=== PATIENT | female | born 1940 | race Caucasian/White ===

== ENCOUNTER 2016-07-28 03:44 | Observation (INO) | payer MEDICARE, OTHER ==
[2016-07-28] VITALS (12 sets, daily range): BP systolic 142–190; BP diastolic 79–103; PULSE 58–106; RESP 16–20; O2SAT 94–98
[~2016-07-28] VITALS: Ht 165.1 cm; Wt 89.6 kg
[~2016-07-28 03:44] MED LIST: ADV250INH INH; AMLO-39 PO; ASPI81TA40 PO; HYDR1TAB69 PO; LEVO50TA83 PO; OMEP40CA25 PO; TEN50 PO
--- NOTE | 2016-07-28 03:49 | ED.REPORT ---
HPI-Chest Pain 40 and Over Date of Service Jul 28, 2016 ED Provider: Scar Garcia MD This is a 75 year old female with a history of NC, s/p cardiac stents x2 presenting to the emergency department via EMS complaining of sudden onset chest pain that began 1 hour ago and is now resolved. Chest pain woke her from sleep with radiation to the left arm, 8/10, associated with nausea, shortness of breath, and diaphoresis. Pt took one nitro that was prescribed at time of NC which provided mild pain relief. En route, 1 nitro, 325 mg ASA administered, provided complete chest pain relief. In the ED, pt denies chest pain, nausea, SOB, or diaphoresis. Pt states symptoms are similar to those she experienced with previous NC. Nursing Notes Stated Complaint: CHEST PAIN Chief Complaint: Chest Pain Nursing Notes Reviewed: Yes Allergies: Coded Allergies: No Known Allergies (Unverified , 07/28/16) Scheduled AmLODIPine-Expunged Drug, Do Not Renew! (AmLODIPine-Expunged Drug, Do Not Renew! ) 5 Mg Tablet 2.5 MG PO DAILY HOLD FOR SBP<[] OR HR<[] Aspirin-Expunged Drug, Do Not Renew! (Aspirin-Expunged Drug, Do Not Renew!) 81 Mg Tab.chew 81 MG PO DAILY INSTRUCTED TO STOP Atenolol-Expunged Drug, Do Not Renew! (Atenolol-Expunged Drug, Do Not Renew!) 50 Mg Tablet 50 MG PO DAILY Hydrocod/APAP-Expunged, Do Not Renew! (VICODIN-Expunged Drug, Do Not Renew) 1 Tab Tab 5-325 TAB PO HS Levothyroxine-Expunged Drug, Do Not Renew! (Synthroid-Expunged Drug, Do Not Renew!) 50 Mcg Tablet 50 MCG PO DAILY Omeprazole-Expunged Drug, Do Not Renew! (Omeprazole-Expunged Drug, Do Not Renew! ) 40 Mg Capsule.dr 40 MG PO DAILY Scheduled PRN Flutic/Salmet-Expunged Drug, Do Not Renew! (Advair 500/50-Expunged Drug, Do Not Renew!) 60 Puff Disk 1 PUFF INH BID PRN PRN SYMBICORT 160-4.5 2 PUFFS BID General Time Seen by MD: 03:45 Chief Complaint Chest pain Hx Obtained From: Patient Arrived By: Ambulance Sudden in Onset?: Yes Onset Occurred: 1 - 4 hours ago Symptom Duration: Since onset Location: : Chest left Severity: Current: No pain currently Severity: Maximum: Moderate Pertinent Negative: Pt denies other symptoms Recent Healthcare: No recent doctor visit, No recent hospitalization Similar Sx Previous: No Past Medical History Past Medical History NC Past Surgical History Cardiac stents x2 Ambulatory Status Independent Review of Systems Constitutional: Denies: Chills, Fever Respiratory: Reports: Shortness of breath, Denies: Non-productive cough Cardiovascular: Reports: Chest pain GI: Reports: Nausea, Denies: Abdominal pain, Vomiting Musculoskeletal: Denies: Back pain Skin: Reports Diaphoresis Complete sys rev & neg: except as marked. Female: Denies: Dysuria Physical Exam Initial Vital Signs Vital Signs (First) Date Time Temp Pulse Resp B/P Pulse Ox O2 Delivery O2 Flow Rate FiO2 07/28/16 03:52 36.7 68 18 172/81 98 Room Air --=- Initial VS: Reviewed Head / Eyes: Atraumatic, Normocephalic, PERRL ENT: Mucous membranes moist, Conjunctiva normal, No scleral icterus Neck: Supple, Non-tender, Full range of motion Extremities: Vascular intact, Neuro intact, No swelling, No tenderness Skin: Warm, Dry, No cyanosis Neurologic: Alert, Oriented, Nonfocal Psychiatric: Mood/affect normal, Behavior normal, Normal thought content General/Constitutional: Awake, Alert Respiratory / Chest: Breath sounds NL, Breath sounds = bilat, No respiratory distress, No rales, No rhonchi, No wheezing, No stridor, No chest tenderness Cardiovascular: No murmurs Abdomen: Soft, Non-tender, McBurney's non-tender, No guarding, No rebound, BS normoactive, No distention, No hernia, No palpable mass Interpretation & Diagnostics Lab Results Interpretation Result Diagram: 07/28/16 0345 07/28/16 0345 Test 07/28/16 03:00 07/28/16 03:45 Prothrombin Time 20.6sec (8.1-12.5) Prothromb Time International Ratio 1.90ratio Activated Partial Thromboplast Time 36.8sec (22.8-33.0) Pro-B-Type Natriuretic Peptide 252.8pg/mL (0-301) White Blood Count 6.4th/mm3 (3.8-10.1) Red Blood Count 4.78mil/mm3 (3.90-5.20) Hemoglobin 13.4g/dL (12.0-15.6) Hematocrit 40.2% (35.0-46.0) Mean Corpuscular Volume 84.1fL (81-100) Mean Corpuscular Hemoglobin 28.0pg (27.0-35.0) Mean Corpuscular Hemoglobin Concent 33.3% (32.0-37.0) Red Cell Distribution Width 15.1% (12.3-15.4) Platelet Count 228bil/L (150-400) Neutrophils (%) (Auto) 40.5% (40-74) Lymphocytes (%) (Auto) 45.9% (14-46) Monocytes (%) (Auto) 9.1% (4-12) Eosinophils (%) (Auto) 3.5% (0-5) Basophils (%) (Auto) 0.8% (0-3) Sodium Level 137mEq/L (134-144) Potassium Level 3.1mEq/L (3.5-5.2) Chloride Level 97mEq/L (97-108) Carbon Dioxide Level 24mmol/L (18-29) Blood Urea Nitrogen 11mg/dL (8-27) Creatinine 0.88mg/dL (0.57-1.00) Estimat Glomerular Filtration Rate 90mL/min (>59) Glucose Level 116mg/dL (60-99) Calcium Level 8.7mg/dL (8.5-10.1) Magnesium Level 1.7mg/dL (1.6-2.6) Total Bilirubin 0.6mg/dL (0.0-1.2) Aspartate Amino Transf (AST/SGOT) 16U/L (0-50) Alanine Aminotransferase (ALT/SGPT) 7U/L (0-32) Alkaline Phosphatase 58U/L (25-165) Troponin T 0.010ug/L (0.0-0.011) Total Protein 7.0g/dL (6.4-8.4) Albumin 4.0g/dL (3.4-5.0) X-Ray Chest Interpretation Interpretation / Wet Read by: Wet read ED physician NL X-Ray Chest Findings: No infiltrate, No acute disease Re-Eval/Medical Decision Med Decision/Clinical Course 75-year-old with prior NC and stenting 2, presents to years later after angina free., With identical symptoms to her NC awakening her from sleep. Her story is quite concerning for unstable angina. She is initially negative by enzymes, with some minor changes in her T waves of her lateral leads in the field compared to here after becoming pain-free. Admitted to the medicine service for completion rule out protocol and dynamic testing to exclude progressive occlusion of her grafts or other progression of her disease. Begun on heparin. Time of Eval: 04:59 Re-Evaluation/Progress Note: plan for admission, all questions addressed. 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 (PCP) Scribe Attestation Portions of this note were transcribed by Ariana Anna. I, Dr. Garcia personally performed the history, physical exam and medical decision-making; I reviewed and confirmed the accuracy of the information in the transcribed note. Signed by: brendon Pham. 07/27/2016, 06:00. Scar Garcia MD Jul 28, 2016 03:49 ARIANA ANNA Jul 28, 2016 03:56
[2016-07-28 03:53] LABS: BASOPHILS % (AUTO) 0.8 % (0-3); EOSINOPHILS % (AUTO) 3.5 % (0-5); MONOCYTES % (AUTO) 9.1 % (4-12); Mean Corpuscular Volume 84.1 fL (81-100); NEUTROPHILS % (AUTO) 40.5 % (40-74); Platelet Count 228 bil/L (150-400)
[2016-07-28] MEDS ORDERED: LORazepam 0.5 mg Tablet PO PRN (03:55)
[2016-07-28] MEDS ORDERED: Nitroglycerin 2% 1 Gm Ointment TOPICAL ONE (03:55)
[2016-07-28 04:19] LABS: TROPONIN T 0.01 ug/L (0.0-0.011)
[2016-07-28 04:30] LABS: Magnesium 1.7 mg/dL (1.6-2.6)
[2016-07-28] MEDS ORDERED: Heparin 25K Unit/500mL 0.45 NS 25,000 UNIT in IV Premix 1 EACH IV ONE (05:10)
[2016-07-28] MEDS ORDERED: Heparin 5,000 Unit/mL Inj IVPUSH ONE (05:10)
[2016-07-28] MEDS ORDERED: Ondansetron 2 mg/mL 2 mL Inj IVPUSH PRN ×2 (05:15→05:50)
[2016-07-28] MEDS ORDERED: Heparin 25K Unit/500mL 0.45 NS 25,000 UNIT in IV Premix 1 EACH IV SCH ×2 (05:15→05:50)
[2016-07-28] MEDS ORDERED: Alum-Mag Hydrox-Simeth 30 mL Suspension PO PRN ×2 (05:15→05:50)
[2016-07-28 05:20] LABS: INR 1.9 ratio
[2016-07-28] MEDS ORDERED: Heparin 5,000 Unit/mL Inj IVPUSH PRN (05:50)
[2016-07-28] MEDS ORDERED: Atropine 1 mg/10 mL (Code) Syringe IVPUSH PRN (05:50)
[2016-07-28] MEDS ORDERED: Polyethylene Glycol (PEG) 17 Gm Powder PO PRN (05:50)
[2016-07-28] MEDS ORDERED: Senna-Docusate 8.6-50 mg Tablet PO PRN (05:50)
--- NOTE | 2016-07-28 06:16 | PCM.HPMED ---
Subjective Date of Service Jul 28, 2016 Primary Provider: Admitting Physician: Karyn Pena MD Primary Care Physician: Naldo Vizcaino MD Attending Physician: Karyn Pena MD Admit Status: From the Emergency Department, 23-Hour Observation, [facility] Telemetry Chief Complaint: Chest pain History of Present Illness: This 75-year-old female who has a history of CO status post cardiac stents 2 which occurred approximately 2 years ago. This is per patient report. She had been doing fine up until overnight. She woke up early this morning with left- sided chest pressure she noted it radiated to her shoulder and then down her arm. She had shortness of breath along with cold sweat and nausea. She took a sublingual nitroglycerin at home and did call 911. She notes all in all the chest pressure lasted for approximately 45 minutes. She notes it was similar to when she had her CO 2 years ago. Her evaluation in the emergency room includes a troponin which was 0.010. Her initial EKG revealed sinus at a rate of 69. She did have poor R-wave progression across precordium. Repeat EKG did not show any changes from initial one. Except for initial and having possibly some flattening of the T wave in lead 3. Review of records from [facility] previously revealed a left heart catheterization which was done March 2010. At that time revealed an ejection fraction of 55-60% with mild apical hypokinesis. There were no significant coronary artery blockages except for left anterior descending artery having mild luminal irregularities along with the left circumflex and right coronary artery having luminal irregularities. Review of Systems: Patient denies any fevers chills. 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 Family History Mother and father with a history of coronary artery disease Social History Hx Alcohol Use: Yes Hx Substance Use: No Hx Tobacco Use: Yes Living Arrangement: with Family Exam Vital Signs Vital Sign - Last Date Time Temp Pulse Resp B/P Pulse Ox O2 Delivery O2 Flow Rate FiO2 07/28/16 05:48 36.7 62 174/103 96 Room Air 07/28/16 05:18 18 Exam Constitutional: Elderly woman in no acute distress Head: Normocephalic atraumatic Eyes: PERRLA GC EOMI Mouth: No lesions Neck: Carotids 2+ over 4 without bruits bilaterally Chest: Clear to auscultation Cor: Regular rate and rhythm S1-S2 without murmur Abdomen: Soft nontender bowel sounds present Extremities: No pedal edema Skin: No rashes Psych: Mood and affect are appropriate Neuro: Alert and oriented 3, motor strength is intact bilaterally Lab and Diagnostics Labs Laboratory Tests 72 Hours Test 07/28/16 03:00 07/28/16 03:45 Prothrombin Time 20.6sec (8.1-12.5) Prothromb Time International Ratio 1.90ratio Activated Partial Thromboplast Time 36.8sec (22.8-33.0) Pro-B-Type Natriuretic Peptide 252.8pg/mL (0-301) White Blood Count 6.4th/mm3 (3.8-10.1) Red Blood Count 4.78mil/mm3 (3.90-5.20) Hemoglobin 13.4g/dL (12.0-15.6) Hematocrit 40.2% (35.0-46.0) Mean Corpuscular Volume 84.1fL (81-100) Mean Corpuscular Hemoglobin 28.0pg (27.0-35.0) Mean Corpuscular Hemoglobin Concent 33.3% (32.0-37.0) Red Cell Distribution Width 15.1% (12.3-15.4) Platelet Count 228bil/L (150-400) Neutrophils (%) (Auto) 40.5% (40-74) Lymphocytes (%) (Auto) 45.9% (14-46) Monocytes (%) (Auto) 9.1% (4-12) Eosinophils (%) (Auto) 3.5% (0-5) Basophils (%) (Auto) 0.8% (0-3) Sodium Level 137mEq/L (134-144) Potassium Level 3.1mEq/L (3.5-5.2) Chloride Level 97mEq/L (97-108) Carbon Dioxide Level 24mmol/L (18-29) Blood Urea Nitrogen 11mg/dL (8-27) Creatinine 0.88mg/dL (0.57-1.00) Estimat Glomerular Filtration Rate 90mL/min (>59) Glucose Level 116mg/dL (60-99) Calcium Level 8.7mg/dL (8.5-10.1) Magnesium Level 1.7mg/dL (1.6-2.6) Total Bilirubin 0.6mg/dL (0.0-1.2) Aspartate Amino Transf (AST/SGOT) 16U/L (0-50) Alanine Aminotransferase (ALT/SGPT) 7U/L (0-32) Alkaline Phosphatase 58U/L (25-165) Troponin T 0.010ug/L (0.0-0.011) Total Protein 7.0g/dL (6.4-8.4) Albumin 4.0g/dL (3.4-5.0) Result Diagram: 07/28/16 0345 07/28/16 034 12-lead ECG As above in history of present illness Assessment & Plan # Chest pain, acute, present on admission Patient was started on IV heparin drip in the emergency room and will continue Check serial troponins Check echocardiogram Obtain nuclear stress pharmacological test # DVT prophylaxis Currently she is on IV heparin drip # CODE STATUS Full code Resuscitation Status: CPR: Attempt Resuscitation Time spent 60 minutes Karyn Pena MD Jul 28, 2016 06:16
--- NOTE | 2016-07-28 06:30 | NUR ---
MED REC NOT COMPLETED Pt does not have list of current medications with her, and unable to recall medications off of memory. Pts will bring in list.
[2016-07-28] MEDS: 0.9% Sodium Chloride 1,000 ML IV SCH ×3 (06:36→22:15)
--- NOTE | 2016-07-28 07:02 | NUR ---
PREP FOR CARDIAC STRESS TEST Nitro paste removed from pts chest at 0645 on 07/28/16. Pt states last drink of caffeine was 1500 on 07/27/16. Last meal was 1600 on 07/27/16. Pt needs 2nd troponin drawn prior to test being performed. Lab called, will be arriving to draw 2nd troponin.
--- NOTE | 2016-07-28 07:09 | NUR ---
ADMIT NOTE Pt arrived to [facility] approx 0535. Pt alert and oriented. Pt slightly unsteady on feet d/t R hip replacement and arthritis. Pt placed on remote telemetry. Pt arrived from ER w/ heparin gtt infusing, cardiac protocol, at 1000 units/hr (20ml/hr). IVF administered. Pt denies pain at this time. Pt made aware of NPO status, cardiac stress test and ECHO. Continue to monitor. Call light in reach. Bed alarm on. Intentional rounding.
--- NOTE | 2016-07-28 08:11 | NUR ---
pt is NPO, all oral medications are being held this am.
[2016-07-28] MEDS: Sodium Chloride LOK Flush 10 mL Syringe IVFLUSH SCH ×2 (08:30→16:30)
--- NOTE | 2016-07-28 08:40 | DRSVH ---
PROCEDURE: X-RAY CHEST ONE VIEW, PORTABLE ([id number]) INDICATIONS: cp TECHNIQUE: One view of the chest was acquired. COMPARISON: [facility], , CHEST 1VW (PORTABLE), 01/27/2007, 16:43. FINDINGS: Surgical changes and devices: None. Lungs and pleura: No pleural effusions or pneumothorax. Lungs are clear and mildly hyperinflated si milar to prior exam. Mediastinum: Mediastinal contours appear normal. Heart size is normal. Bones and chest wall: No suspicious bony lesions. Overlying soft tissues appear unremarkable. IMPRESSION: No acute cardiopulmonary disease. Dictated by: Aleksandr Jeong RR Interpreted: Hayden Mason MD on 07/28/2016 at 8:39 Transcribed by: GISELLE on 07/28/2016 at 8:40 Approved by: Hayden Mason M.D. on 07/28/2016 at 9:03
[2016-07-28 09:33] LABS: APPEARANCE,URINE CLEAR (CLEAR,HAZY); COLOR,URINE YELLOW (YELLOW); OCCULT BLOOD,URINE TRACE (NEGATIVE); PH,URINE 7.5 (5.0-8.0); UROBILINOGEN,URINE NORMAL (NORMAL)
--- NOTE | 2016-07-28 14:25 | NUR ---
off floor pt is transported via W/C by transporter. pt is having a stress test.
--- NOTE | 2016-07-28 14:27 | NUR ---
Heparin turned off for procedure. Heparin running at 20mL/hr when pt left floor.
--- NOTE | 2016-07-28 14:47 | NUR ---
Social Work: Initial Assessment / Readiness for d/c Data: Pt is a 75 y/o female admitted for unstable angina. Pt's PCP is Dr Vizcaino, pt's insurance is [employer]. Readmit score not listed. EMR reviewed. Pt discussed in rounds, MD states pt likely to d/c either today or tomorrow. HEAD OF RESEARCH & INSIGHTS met with pt at bedside, role explained. Pt states that she lives in a single story home with her spouse where she uses no DME. Pt states that she drives, has history of HH, history with [facility] for SNF, no LTC or VA benefits, and is not a caregiver. Pt states she has been up independent in her room. Contact info and plan written on board. No d/c planning needs anticipated at this time. HEAD OF RESEARCH & INSIGHTS will continue to follow if needs arise. Assessment: Pt who is independent at baseline. Plan: Pt will d/c home via POV with spouse when medically stable. No d/c planning needs anticipated at this time. HEAD OF RESEARCH & INSIGHTS will continue to follow if needs arise. ANDREW Johnson Addendum: 07/28/16 at 1450 by BERT ALEXANDER Amended: Links added.
--- NOTE | 2016-07-28 16:02 | NUR ---
bloody tissues son states that he was at the pt's home to grab medications. He noticed bloody tissues and what looked like was spit up or coughed up blood on the tissues. He just wanted us to be aware of this.
[2016-07-28] MEDS ORDERED: LIP40 PO (17:34)
[2016-07-28] MEDS ORDERED: HYDR12.55 PO (17:35)
[2016-07-28] MEDS ORDERED: WARF2.5T82 PO (17:36)
[2016-07-28] MEDS ORDERED: WARF5TAB7 PO (17:36)
--- NOTE | 2016-07-28 17:37 | DRSVH ---
PROCEDURE: 1 DAY PHARMACOLOGICAL STRESS TEST Rest and pharmacological stress myocardial perfusion SPECT with gated imaging and ejection fraction RADIOPHARMACEUTICAL: 9.71 mCi Tc-99m tetrafosmin IV at rest and 31.9 mCi Tc-99m tetrafosmin IV at pe ak effect of pharmacological stress. A [id number] was performed. INDICATIONS: chest pain. TECHNIQUE: Radiopharmaceutical was injected at peak stress test, and also at rest. SPECT images wer e obtained. SPECT myocardial perfusion images were displayed in short axis, horizontal long axis, an d vertical long axis views. Gated images were reviewed using [employer] software. COMPARISON: [facility], [facility] PERF SPECT MULTI ([facility]), 03/09/2007, 8:36. CARDIAC STRESS: A pharmacologic stress test was performed under the supervision of an attending staff, using an infus ion of lexiscan 0.4mg IVX1. Hemodynamic data: There is normal blood pressure and heart rate response to pharmacologic stress. Symptoms: The patient denied anginal chest pain. Aminophylline: 100mg IV X1 EKG: No diagnostic changes of ischemia; no ectopy. FINDINGS: Raw data: There is good myocardial uptake of radiotracer. No significant motion artifacts. Left ventricle function: Gated images demonstrate normal left ventricular wall thickening. No segme ntal wall motion abnormalities. No transient ischemic dilation. Left ventricle resting end diastoli c volume is 73 mL. Left ventricle stress ejection fraction is 79%; normal range is above 45%. Myocardial perfusion: Very mild fixed defect in the apex, consistent with apical thinning. No signi ficant ischemia but small prior infarction can not be completely excluded. Prone images were not obt ained. IMPRESSION: Probably normal perfusion study 1) Probably normal perfusion study. Very mild fixed defect in the apex, consistent with apical thinn ing. No significant ischemia but small prior subendocardial infarction can not be completely exclude d. Prone images were not obtained. 2) Normal left ventricular size, wall motion, and systolic function (EF 79%). 3) No ECG evidence of ischemia with lexiscan. 4) No angina or angina equivalent symptoms with lexiscan. 5) Compared to the nuclear stress test report on 03/09/2007, the previously seen inferior and anterior defects are no longer present but the apical defect present on today's study is new. Dictated by: Onesimo Bonilla M.D. on 07/28/2016 at 17:19 Approved by: Onesimo Bonilla M.D. on 07/28/2016 at 17:36
[2016-07-28] MEDS ORDERED: OMEP20CA11 PO (20:20)
[2016-07-28] MEDS ORDERED: LEVO50TA6 PO (20:20)
[2016-07-28] MEDS ORDERED: ATEN50TA PO (20:20)
--- NOTE | 2016-07-29 00:15 | NUR ---
Heparin gtt Heparin stopped prior to shift change for elevated PTT of 132.6 for unknown length of time. At shift shift change the RN indicated this value cannot be right since the draw was taken right after resuming the gtt after the patient returned to the floor. A stat PTT was placed and returned the value 35.7. Informed the nurse charge rn and started Heparin protocol over with rate of 1000u/hour and lab draws rescheduled for Q6 x4.
[2016-07-29] MEDS: Sodium Chloride LOK Flush 10 mL Syringe IVFLUSH SCH ×2 (00:30→08:05)
[2016-07-29 04:40] VITALS: BP 146/81; PULSE 63; RESP 18; O2SAT 95
[2016-07-29 05:34] VITALS: PULSE 60
[2016-07-29 08:00] VITALS: PULSE 66
--- NOTE | 2016-07-29 08:30 | PCM.DIMED ---
Discharge Instructions Date of Service Jul 29, 2016 Dates of Hospitalization Jul 28, 2016 at 05:21 Discharge Diagnosis Discharge Diagnosis # Chest pain, acute, present on admission - Now resolved, though there is a history of coronary artery disease, heart attack, no evidence of acute condition at this time based on stress testing and other studies. - Continue home medications, FU with PCP in 1-2 weeks for further management and tight blood pressure control. Diet Heart Healthy Activity No restrictions Call your provider Fever or Chills, Shortness of breath, Chest pain Patient Instructions Follow-up with PCP in: 1 week Enoch Isaac DO Jul 29, 2016 08:30
--- NOTE | 2016-07-29 08:36 | PCM.DC.MED ---
Discharge Summary Date of Service Jul 29, 2016 Dates of Hospitalization Date of Hospital Admission Jul 28, 2016 at 05:21 Date of Discharge: Jul 29, 2016 Providers: Admitting Physician: Karyn Pena MD Primary Care Physician: Naldo Vizcaino MD Attending Physician: Karyn Pena MD Diagnosis at Time of Discharge Diagnosis at Time of Discharge # Chest pain, acute, present on admission - Now resolved, though there is a history of coronary artery disease, heart attack, no evidence of acute condition at this time based on stress testing and other studies. - Continue home medications, FU with PCP in 1-2 weeks for further management and tight blood pressure control. Procedures ECG 12 Lead As above in history of present illness Invasive Procedures Date of Service: 07/28/16 0546 PROCEDURE: 1 DAY PHARMACOLOGICAL STRESS TEST IMPRESSION: Probably normal perfusion study 1) Probably normal perfusion study. Very mild fixed defect in the apex, consistent with apical thinning. No significant ischemia but small prior subendocardial infarction can not be completely excluded. Prone images were not obtained. 2) Normal left ventricular size, wall motion, and systolic function (EF 79%). 3) No ECG evidence of ischemia with lexiscan. 4) No angina or angina equivalent symptoms with lexiscan. 5) Compared to the nuclear stress test report on 03/09/2007, the previously seen inferior and anterior defects are no longer present but the apical defect present on today's study is new. Dictated by: Onesimo Bonilla M.D. on 07/28/2016 at 17:19 Brief History As per HPI by Dr. Pena, "This 75-year-old female who has a history of MO status post cardiac stents 2 which occurred approximately 2 years ago. This is per patient report. She had been doing fine up until overnight. She woke up early this morning with left-sided chest pressure she noted it radiated to her shoulder and then down her arm. She had shortness of breath along with cold sweat and nausea. She took a sublingual nitroglycerin at home and did call 911. She notes all in all the chest pressure lasted for approximately 45 minutes. She notes it was similar to when she had her MO 2 years ago. Her evaluation in the emergency room includes a troponin which was 0.010. Her initial EKG revealed sinus at a rate of 69. She did have poor R-wave progression across precordium. Repeat EKG did not show any changes from initial one. Except for initial and having possibly some flattening of the T wave in lead 3. Review of records from [facility] previously revealed a left heart catheterization which was done March 2010. At that time revealed an ejection fraction of 55-60% with mild apical hypokinesis. There were no significant coronary artery blockages except for left anterior descending artery having mild luminal irregularities along with the left circumflex and right coronary artery having luminal irregularities." Hospital Course # Chest pain, acute, present on admission: Patient was started on IV heparin drip in the emergency room which was continued until completion of stress testing which demonstrated no evidence of ACS. Pt's chest pain resolved by day# 1 of hospitalization. She was also monitored on telemetry, and serial troponin trended, all of which was negative. Lipid panel obtained, listed below. #Hypertension: Pt's oral BP medications were held while NPO which resulted in a significant rise, max sBP of 190, however this improved with restarting of oral medications prior to discharge, though not an optimal range. I will put primary care is indicated shortly following discharge to optimize blood pressure medications. Exam Vital Signs (Last) Date Time Temp Pulse Resp B/P Pulse Ox O2 Delivery O2 Flow Rate FiO2 07/29/16 05:34 60 07/29/16 04:40 36.6 18 146/81 95 Room Air Exam Patient was in stable condition Hospital bed in no distress Breathing comfortably. Heart was a regular rate and rhythm without abnormality. Extremities well-perfused without edema. Test 07/28/16 03:00 07/28/16 03:45 07/28/16 06:25 07/28/16 07:18 Prothrombin Time 20.6sec (8.1-12.5) Prothromb Time International Ratio 1.90ratio Pro-B-Type Natriuretic Peptide 252.8pg/mL (0-301) White Blood Count 6.4th/mm3 (3.8-10.1) Red Blood Count 4.78mil/mm3 (3.90-5.20) Mean Corpuscular Volume 84.1fL (81-100) Mean Corpuscular Hemoglobin 28.0pg (27.0-35.0) Mean Corpuscular Hemoglobin Concent 33.3% (32.0-37.0) Red Cell Distribution Width 15.1% (12.3-15.4) Platelet Count 228bil/L (150-400) Neutrophils (%) (Auto) 40.5% (40-74) Lymphocytes (%) (Auto) 45.9% (14-46) Monocytes (%) (Auto) 9.1% (4-12) Eosinophils (%) (Auto) 3.5% (0-5) Basophils (%) (Auto) 0.8% (0-3) Sodium Level 137mEq/L (134-144) Potassium Level 3.1mEq/L (3.5-5.2) Chloride Level 97mEq/L (97-108) Carbon Dioxide Level 24mmol/L (18-29) Blood Urea Nitrogen 11mg/dL (8-27) Creatinine 0.88mg/dL (0.57-1.00) Estimat Glomerular Filtration Rate 90mL/min (>59) Glucose Level 116mg/dL (60-99) Calcium Level 8.7mg/dL (8.5-10.1) Magnesium Level 1.7mg/dL (1.6-2.6) Total Bilirubin 0.6mg/dL (0.0-1.2) Aspartate Amino Transf (AST/SGOT) 16U/L (0-50) Alanine Aminotransferase (ALT/SGPT) 7U/L (0-32) Alkaline Phosphatase 58U/L (25-165) Total Protein 7.0g/dL (6.4-8.4) Albumin 4.0g/dL (3.4-5.0) Urine Color Yellow (YELLOW) Urine Appearance Clear (CLEAR,HAZY) Urine pH 7.5 (5.0-8.0) Urine Specific [place] 1.015 (1.003-1.035) Urine Protein Negativemg/dL (NEG,TRACE) Urine Glucose (UA) Negativemg/dL (NEGATIVE) Urine Ketones Negativemg/dL (NEGATIVE) Urine Occult Blood Trace (NEGATIVE) Urine Nitrite Negative (NEGATIVE) Urine Bilirubin Negative (NEGATIVE) Urine Urobilinogen Normalmg/dL (NORMAL) Urine Leukocyte Esterase Negative (NEGATIVE) Urine RBC 0-2/hpf (0-2) Urine WBC 0-5/hpf (0-5) Urine Epithelial Cells Occasional/hpf (NONE-MOD) Urine Crystals None seen (NONE SEEN) Urine Bacteria Few/hpf (NONE-FEW) Urine Hyaline Casts Occasional/lpf (NONE) Urine Granular Casts None seen (NONE SEEN) Urine Waxy Casts None seen (NONE SEEN) Urine Red Blood Cell Casts None seen (NONE SEEN) Urine White Blood Cell Casts None seen (NONE SEEN) Urine Mucus None seen (None Seen) Urine Trichomonas None seen (NONE SEEN) Urine Yeast None (NONE SEEN) Urinalysis Comment None Urine Culture Reflexed Not indicated Hemoglobin A1c 6.2% (4.8-5.6) Test 07/28/16 11:05 07/29/16 02:45 07/29/16 05:20 Troponin T 0.010ug/L (0.0-0.011) Activated Partial Thromboplast Time 72.1sec (22.8-33.0) Hemoglobin 11.9g/dL (12.0-15.6) Hematocrit 37.0% (35.0-46.0) Triglycerides Level 62mg/dL (0-149) Cholesterol Level 122mg/dL (100-199) LDL Cholesterol, Calculated 49.600mg/dL (0-99) VLDL Cholesterol 12.400mg/dL HDL Cholesterol 60mg/dL (>39) Cholesterol/HDL Ratio 2.03 (0.0-4.4) Discharge Medications Discharge Medications Atenolol (Atenolol) 50 Mg Tablet 50 MG PO DAILY (Reported) Atorvastatin (Lipitor) 40 Mg Tablet 40 MG PO DAILY (Reported) Hydrochlorothiazide (Hydrochlorothiazide) 12.5 Mg Tablet 12.5 MG PO DAILY ( Reported) Levothyroxine (Levothyroxine) 50 Mcg Tablet 50 MCG PO DAILY (Reported) Omeprazole (Omeprazole) 20 Mg Capsule.dr 20 MG PO DAILY (Reported) Warfarin Sodium (Warfarin Sodium) 5 Mg Tablet 5 MG PO Q2DAY (Reported) Warfarin Sodium (Warfarin Sodium) 2.5 Mg Tablet 7.5 MG PO Q2DAY (Reported) Followup Plan Disposition: Home Discharge Diet: Heart Healthy Discharge Activity: No restrictions Follow-up with PCP in: 1 week Time spent 40 minutes copies to: Naldo Vizcaino MD, Benjamin P DO Jul 29, 2016 08:35
--- NOTE | 2016-07-29 08:53 | NUR ---
Social Work: Discharge Data: Pt is on day 1 of hospitalization. EMR reviewed. D/C orders are in. HH not needed at this time, pt ambulatory in room with cane, which is baseline. No d/c planning needs at this time. SHORTAGE WORKER will continue to follow if needs arise. Assessment: Pt who is independent at baseline, uses a cane. Plan: Pt will d/c home via POV today with spouse. No d/c planning needs at this time. SHORTAGE WORKER will continue to follow if needs arise. ANDREW Johnson
--- NOTE | 2016-07-29 09:48 | NUR ---
discharge paperwork reviewed, no questions at this time. pt denies pain/CP/distress. belongings bagged and transported to the car by pt's . pt transported to private car to return home by SCHEDULE MAKER via W/C
== END 2016-07-29 09:55 | disposition home or self-care (01) ==
LOC: SED 03:44 → MPC 05:21
PROVIDERS: ADMIT Specialist; ATTEND Specialist
DX: R07.9 Chest pain, unspecified (principal); I10 Essential (primary) hypertension; I25.10 Atherosclerotic heart disease of native coronary artery without angina pectoris; I25.2 Old myocardial infarction; Z95.5 Presence of coronary angioplasty implant and graft; Z96.641 Presence of right artificial hip joint; R06.02 Shortness of breath
CPT/HCPCS: 36415; 71010; 78452; 80053; 80061; 81000; 83036; 83735; 83880; 84484; 85014; 85018; 85025; 85610; 85730; 93005; 93017; 94799; 96365; 99285; A9502; J0280; J1644; J2785; J7030